=== PATIENT | female | born 1950 | race Caucasian/White ===

== ENCOUNTER → 2016-08-31 | Outpatient (CLI) | payer MEDICARE ==
--- NOTE | ~2016-08-31 | CR63 ---
[facility] A Service of [facility] RADIOLOGY TEXT RESULTS PATIENT: OK FLORES LOCATION: [facility] : 54 UNIT #: [id number] AGE: [address]: DANDY HILL MD SEX: F ORDER DR: [id number] [facility]. [place], [place] [address] [id number] O MR#: [id number] Acc #: [id number] NAME: OK FLORES : 1950 SEX: F STUDY DATE/TIME: 08/31/2016 16:41 UNIT: [facility] ROOM: STUDY DESCRIPTION: CR Chest 2 View Attending Physician: Dandy Hill M.D. Ordering Physician: Dandy Hill M.D. Primary Care Physician: No Primary Care Physician MEDICAL IMAGING REPORT This report is preliminary unless electronic signature is present EXAM 2 view chest. DATE OF EXAM 08/31/2016 CLINICAL HISTORY Shortness of air. Right-sided chest pain for 6 months. REPORT PA and lateral views of the chest. COMPARISON Compared to 06/01/2016. FINDINGS Heart and mediastinal contours within normal limits. No new pulmonary opacities. No pneumothorax. IMPRESSION No acute cardiopulmonary findings. Dictated by... Michael Paulino M.D. THIS IS AN ELECTRONICALLY VERIFIED REPORT Michael Paulino M.D. at 09/01/2016 3:21 PM CAMILA/krysta TD: 08/31/2016 20:50 JOB #: [id number] [facility] A Service of [facility] RADIOLOGY TEXT RESULTS PATIENT: OK FLORES LOCATION: [facility] : 54 UNIT #: [id number] AGE: [address]: DANDY HILL MD SEX: F ORDER DR: MEDICAL IMAGING REPORT Page 1 of 1 COPY
== END | disposition home or self-care (01) ==
LOC: CRAD 16:27
DX: R06.02 Shortness of breath (principal)
CPT/HCPCS: 71020

== ENCOUNTER → 2016-09-21 | Outpatient (CLI) | payer MEDICARE ==
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
--- NOTE | ~2016-09-21 | EE ---
Unit #: [id number] #: [id number] Patient: OK FLORES [id number] [address] [place], [place] [address] [id number] O MR#: [id number] NAME: OK FLORES : 1950 SEX: F STUDY DATE/TIME: 09/21/2016 UNIT: [facility] ROOM: STUDY DESCRIPTION: Electroencephalogram. Attending Physician: Clemente Elizondo II., M.D. Primary Care Physician: Guillermo Galarza M.D. NEURODIAGNOSTICS REPORT EXAM Electroencephalogram. REASON FOR STUDY Seizures. TECHNICAL INFORMATION This is a routine EEG performed using the standard international 10-20 system of electrode placement. Photic stimulation was performed. Hyperventilation was not performed. REPORT Throughout the entire study the best background rhythm seen is approximately 10 HZ. This rhythm is seen in both posterior head regions symmetrically and does attenuate to eye opening and closure. Photic stimulation was performed, which did not elicit any epileptiform abnormalities. However, good slow driving response was seen. Hyperventilation was also performed, which failed to reproduce any abnormal buildup. Throughout the entire study there were no electrographic seizures recorded, nor were there any independent epileptiform abnormalities seen. There was no sleep recorded. INTERPRETATION This is a normal awake EEG. A normal EEG does not rule out the possibility of a seizure disorder. Clinical correlation is advised. Dictated by... Clemente Elizondo II., M.D. GWS/afshin TD: 09/27/2016 09:23 JOB #: [id number] Unit #: [id number] #: [id number] Patient: OK FLORES NEURODIAGNOSTICS REPORT Page 1 of 1 X NEURODIAGNOSTICS REPORT
[2016-09-21 10:10] LABS: POC - CREATININE 0.87 mg/dL (0.44-1.03); POC - GFR >60.0 mL/min (>60)
== END | disposition home or self-care (01) ==
LOC: CMRI 07:24
PROVIDERS: Psychiatry & Neurology Neurology
DX: R51 Headache (principal); G31.9 Degenerative disease of nervous system, unspecified
CPT/HCPCS: 70553; 82565; 95816; A9577